=== PATIENT | male | born 1945 | race Caucasian/White ===

== ENCOUNTER 2017-10-13 17:23 | Emergency (ER) ==
[2017-10-13 17:49] VITALS: BP 169/80; TEMP 96.6; BMI 27.9
--- NOTE | 2017-10-13 18:31 | ED.PDOC ---
General <CHELY SIERRA - Last Filed: 10/13/17 19:50> Stated Complaint: Burning with urination; frequency - groin pain; also weeping swollen bilateral lower extremities. Time Seen by Physician: 18:05 Mode of Arrival: Ambulance Information Source: Patient, Family, EMT Exam Limitations: No limitations Nursing and Triage Documentation Reviewed and Agree: Yes Reviewed sepsis parameters & appropriate labs ordered?: Yes System Inflammatory Response Syndrome: Not Applicable System Inflammatory Response Syndrome: Not Applicable <MARY ENNIS - Last Filed: 10/14/17 07:45> ED Provider: Dr. MARY ENNIS Chief Complaint: Non-specific Complaint Primary Care Provider: ALTA SLOAN Sepsis Protocol: For patient's 13 years and over: Temp is 96.8 and below OR 101 and greater Pulse >90 BPM Resp >20/minute Acutely Altered Mental Status Are patient's symptoms suggestive of a new infection, such as: -Pneumonia -Skin, Soft Tissue -Endocarditis -UTI -Bone, Joint Infection -Implantable Device -Acute Abdominal Infection -Wound Infection -Meningitis -Blood Stream Catheter Infection -Unknown Review of Systems - Review Of Systems Constitutional: Reports: Weakness Cardiac: Reports: Edema (massive bilateral LE) : Reports: Burning, Dysuria, Discharge, Pain (Groin area) Skin: Reports: No symptoms Neurological: Reports: No symptoms All Other Systems: Reviewed and Negative <IVÁN ENNISORY - Last Filed: 10/14/17 07:45> Past Medical History - Past Medical History Previously Healthy: No (Multiple system problems) Endocrine: Reports: None Cardiovascular: Reports: CHF Respiratory: Reports: COPD Hematological: Reports: None Gastrointestinal: Reports: None Genitourinary: Reports: UTI Neuro/Psych: Reports: Seizure Musculoskeletal: Reports: None Cancer: Reports: None - Surgical History General Surgical History: Reports: None - Family History Family History: Reports: Unknown - Social History Smoking Status: Current every day smoker, Heavy tobacco smoker Hx Substance Use: No Alcohol Screening: None <MARY ENNIS - Last Filed: 10/14/17 07:45> Physical Exam - Physical Exam Appearance: Ill-appearing Ill-appearing: Moderate Pain Distress: None Eyes: MARY, EOMI ENT: Oropharynx normal Neck: Supple Respiratory: Airway patent, Breath sounds clear, Breath sounds equal Cardiovascular: RRR, Pulses normal GI/: Soft, Nontender Musculoskeletal: Normal strength, ROM intact, Edema ( bilateral LE edema with weeping) Skin: Normal color Neurological: Sensation intact, Motor intact, Alert, Oriented Psychiatric: Affect appropriate, Mood appropriate <MARY ENNIS - Last Filed: 10/14/17 07:45> Critical Care Note - Critical Care Note Total Time (mins): 0 <CHELY SIERRA - Last Filed: 10/13/17 19:50> <MARY ENNIS - Last Filed: 10/14/17 07:45> - Critical Care Note Comments: Refuses to be admitted for lower ext Edema and UTI (CHELY SIERRA) Course - Course Hematology/Chemistry: 10/13/17 18:36 10/13/17 18:36 <CHELY SIERRA - Last Filed: 10/13/17 19:50> - Course Hematology/Chemistry: 10/13/17 18:36 10/13/17 18:36 <MARY ENNIS - Last Filed: 10/14/17 07:45> - Course Orders, Labs, Meds: Lab Review 10/13/17 10/13/17 10/13/17 18:04 18:36 18:36 WBC 9.02 RBC 3.43 L Hgb 10.5 L Hct 31.0 L MCV 90.4 MCH 30.6 MCHC 33.9 RDW Coeff of Vilma 13.4 Plt Count 379 Immature Gran % (Auto) 0.4 Neut % (Auto) 71.2 Lymph % (Auto) 15.4 [place] % (Auto) 11.4 H Eos % (Auto) 1.2 Baso % (Auto) 0.4 Immature Gran # (Auto) 0.0 Neut # 6.4 Lymph # 1.4 [place] # 1.0 Eos # 0.1 Baso # 0.0 Sodium 134 L Potassium 4.9 Chloride 100 Carbon Dioxide 26 Anion Gap 12.9 BUN 19 H Creatinine 0.79 Estimated GFR (MDRD) 96.00 BUN/Creatinine Ratio 24.05 Glucose 121 H Calcium 9.4 Total Bilirubin < 0.3 AST 25 ALT 25 Alkaline Phosphatase 80 B-Natriuretic Peptide Total Protein 7.2 Albumin 3.0 L Globulin 4.2 Albumin/Globulin Ratio 0.71 Urine Color Brown Urine Clarity Turbid Urine pH TNP Ur Specific [place] TNP Urine Protein TNP Urine Glucose (UA) TNP Urine Ketones TNP Urine Blood TNP Urine Nitrite TNP Urine Bilirubin TNP Urine Urobilinogen TNP Ur Leukocyte Esterase TNP Urine Microscopic RBC 5-10 Ur Squamous Epith Cells Not present Amorphous Sediment 4+ Urine Bacteria 1+ Urine Mucus 4+ Urine Yeast 1+ 10/13/17 18:36 WBC RBC Hgb Hct MCV MCH MCHC RDW Coeff of Vilma Plt Count Immature Gran % (Auto) Neut % (Auto) Lymph % (Auto) [place] % (Auto) Eos % (Auto) Baso % (Auto) Immature Gran # (Auto) Neut # Lymph # [place] # Eos # Baso # Sodium Potassium Chloride Carbon Dioxide Anion Gap BUN Creatinine Estimated GFR (MDRD) BUN/Creatinine Ratio Glucose Calcium Total Bilirubin AST ALT Alkaline Phosphatase B-Natriuretic Peptide 309 H Total Protein Albumin Globulin Albumin/Globulin Ratio Urine Color Urine Clarity Urine pH Ur Specific [place] Urine Protein Urine Glucose (UA) Urine Ketones Urine Blood Urine Nitrite Urine Bilirubin Urine Urobilinogen Ur Leukocyte Esterase Urine Microscopic RBC Ur Squamous Epith Cells Amorphous Sediment Urine Bacteria Urine Mucus Urine Yeast Orders Category Date Time Status BNP [B-TYPE NATRIURETIC PEPTIDE] Stat LAB 10/13/17 18:36 Completed CBC W/ AUTO DIFF Stat LAB 10/13/17 18:36 Completed COMPREHENSIVE METABOLIC PANEL Stat LAB 10/13/17 18:36 Completed URINALYSIS C & S IF INDICATED Stat LAB 10/13/17 18:04 Completed URINE CULTURE Stat LAB 10/13/17 18:04 Results Vital Signs: Temp Pulse Resp BP Pulse Ox 10/13/17 17:26 96.6 F L 94 H 22 169/80 H 95 Departure - Departure Time of Disposition: 19:50 Pt referred to PMD for follow-up: Yes IPMP verified?: No Disposition Discussed With: Patient, Family <CHELY SIERRA - Last Filed: 10/13/17 19:50> <MARY ENNIS - Last Filed: 10/14/17 07:45> - Departure Disposition: AMA Discharge Problem: Urinary tract infection Qualifiers: Urinary tract infection type: acute cystitis Hematuria presence: without hematuria Qualified Code(s): N30.00 - Acute cystitis without hematuria Instructions: Urinary Tract Infection in Men (ED) Condition: Stable Additional Instructions: Take medications as prescribed Follow up with PCP Prescriptions: Ciprofloxacin HCl 500 mg PO BID #20 tablet Allergies/Adverse Reactions: Allergies No Known Allergies Allergy (Unverified 10/13/17 17:49) Home Medications: Ambulatory Orders Albuterol Sulfate [Proair Hfa] 2 puff IH Q4H PRN 10/13/17 Ciprofloxacin HCl 500 mg PO BID #20 tablet 10/13/17 Furosemide [Lasix Tab] 20 mg PO QDAC 10/13/17 Phenytoin Cap [Dilantin] 100 mg PO BID 10/13/17 Tiotropium [place] [Spiriva] 1 cap IH DAILY 10/13/17
== END 2017-10-13 20:07 | disposition left against medical advice (07) ==
LOC: ED 17:23
DX: N30.00 Acute cystitis without hematuria (principal); R60.0 Localized edema; I50.9 Heart failure, unspecified; F17.210 Nicotine dependence, cigarettes, uncomplicated
CPT/HCPCS: 36415; 80053; 81001; 83880; 85025; 87086; 87186; 99284

== ENCOUNTER 2017-11-11 09:18 | Emergency (ER) ==
[2017-11-11 09:35] VITALS: BP 178/77; TEMP 97.5
--- NOTE | 2017-11-11 10:54 | ED.PDOC ---
General ED Provider: Dr. JOSSY VELÁSQUEZ Chief Complaint: Extremity Swelling/Pain Stated Complaint: Pain and Swelling of bilat feet and legs. Severe excoraition and drainage from Rt leg down entire pre tibial surface. He states has been attempting to take care of his legs at home. Sees PA at [facility] in [place]. His states she did not know his legs and feet were in that condition. Has past History CHF. Denies previous cardiac work up. Was previous in ER in Sep 2017.Recom Time Seen by Physician: 10:50 Mode of Arrival: Wheelchair Information Source: Patient Exam Limitations: No limitations Primary Care Provider: ALTA SLOAN Referred to ED by: Other Nursing and Triage Documentation Reviewed and Agree: Yes Reviewed sepsis parameters & appropriate labs ordered?: Yes System Inflammatory Response Syndrome: Not Applicable Sepsis Protocol: For patient's 13 years and over: Temp is 96.8 and below OR 101 and greater Pulse >90 BPM Resp >20/minute Acutely Altered Mental Status Are patient's symptoms suggestive of a new infection, such as: -Pneumonia -Skin, Soft Tissue -Endocarditis -UTI -Bone, Joint Infection -Implantable Device -Acute Abdominal Infection -Wound Infection -Meningitis -Blood Stream Catheter Infection -Unknown System Inflammatory Response Syndrome: Not Applicable Cardiovascular Complaint Exam - Chest Pain Complaint/Exam Onset: Gradual Duration: 3 months Symptoms Are: Worse Length of Chest Pain Episodes: NO PAIN/SEVERE SWELLING BILATERAL LOWER EXTREMITIES. MILD DYSPNEA Initial Severity: Severe Current Severity: Moderate AMI/ACS Risk Factors: Reports: Obesity, Smoking TAD Risk Factors: Reports: Hypertension, Smoking, CHF Pulmonary Embolism Risk Factors: Reports: None Prior Care for this Complaint: Yes Recent Stress Test: No Recent Echo/LV Function: No JVD Present: No Subcutaneous Emphysema Present: No Diminshed Breath Sounds: No Reproducible Chest Wall Pain: No Bilateral Pulses Present: No (DIMINISHED) Differential Diagnoses: Other (PERIPHERAL VASCULAR INSUFFICIENCY WITH MARKED LYMPHEDEMA/CELLULITIS RT LEG/EXUDATIVE CHANGES) Quality Indicators For Pneumonia/CAP: Antibiotics in 6hr-admit, Empiric Antibiotic Rx, Vital signs, Mental status assessed Patient Advised to Stop Smoking: Yes Review of Systems - Review Of Systems Constitutional: Reports: No symptoms Eyes: Reports: No symptoms Ears, Nose, Mouth, Throat: Reports: No symptoms Respiratory: Reports: No symptoms, Short of air Cardiac: Reports: No symptoms, Other (peripheral vascular disease) GI: Reports: No symptoms : Reports: No symptoms Musculoskeletal: Reports: No symptoms Skin: Reports: No symptoms, Change in hair/nails, Other (EXCORAITIVE CELLULITIS ) Neurological: Reports: No symptoms Endocrine: Reports: No symptoms Hematologic/Lymphatic: Reports: No symptoms All Other Systems: Reviewed and Negative Past Medical History - Past Medical History Previously Healthy: No (Multiple system problems) Endocrine: Reports: None Cardiovascular: Reports: CHF Respiratory: Reports: COPD Hematological: Reports: None Gastrointestinal: Reports: None Genitourinary: Reports: UTI Neuro/Psych: Reports: Seizure Musculoskeletal: Reports: None Cancer: Reports: None - Surgical History General Surgical History: Reports: None - Family History Family History: Reports: Unknown - Social History Smoking Status: Current every day smoker, Heavy tobacco smoker Hx Substance Use: No Alcohol Screening: None Physical Exam - Physical Exam Appearance: Ill-appearing Ill-appearing: Moderate Pain Distress: Moderate Eyes: MARY, EOMI, Conjunctiva clear ENT: Ears normal, Nose normal, Oropharynx normal Respiratory: Airway patent, Breath sounds clear, Breath sounds equal, Respirations nonlabored Cardiovascular: RRR, Pulses normal, No rub, No murmur GI/: Soft, Nontender, No masses, Bowel sounds normal, No Organomegaly Musculoskeletal: Normal strength, ROM intact, No edema, No calf tenderness, Limited ROM Skin: Warm (excoriation of skin of the lower extremities) Neurological: Sensation intact, Motor intact, Reflexes intact, Cranial nerves intact, Alert, Oriented Psychiatric: Affect appropriate, Mood appropriate Critical Care Note - Critical Care Note Total Time (mins): 30 Course - Course Hematology/Chemistry: 11/11/17 11:10 11/11/17 11:10 Orders, Labs, Meds: Lab Review 11/11/17 11/11/17 11/11/17 11:10 11:10 11:10 WBC 9.20 RBC 3.60 L Hgb 10.7 L Hct 32.9 L MCV 91.4 MCH 29.7 MCHC 32.5 RDW Coeff of Vilma 14.1 Plt Count 323 Immature Gran % (Auto) 0.4 Neut % (Auto) 65.8 Lymph % (Auto) 20.9 [place] % (Auto) 9.9 Eos % (Auto) 2.2 Baso % (Auto) 0.8 Immature Gran # (Auto) 0.0 Neut # (Auto) 6.1 Lymph # (Auto) 1.9 [place] # (Auto) 0.9 Eos # (Auto) 0.2 Baso # (Auto) 0.1 Sodium 138 Potassium 5.0 Chloride 100 Carbon Dioxide 27 Anion Gap 16.0 BUN 14 Creatinine 0.72 Estimated GFR (MDRD) 107.00 BUN/Creatinine Ratio 19.44 Glucose 96 Lactic Acid Calcium 9.7 Total Bilirubin 0.3 AST 13 L ALT 12 Alkaline Phosphatase 103 Troponin I 0.0300 B-Natriuretic Peptide 192 H Total Protein 7.0 Albumin 3.2 L Globulin 3.8 Albumin/Globulin Ratio 0.84 TSH Free T4 Urine Color Urine Clarity Urine pH Ur Specific [place] Urine Protein Urine Glucose (UA) Urine Ketones Urine Blood Urine Nitrite Urine Bilirubin Urine Urobilinogen Ur Leukocyte Esterase Urine Microscopic WBC Ur Squamous Epith Cells Urine Bacteria Influ A Molecular Assay Influ B Molecular Assay 11/11/17 11/11/17 11/11/17 11:28 13:30 13:30 WBC RBC Hgb Hct MCV MCH MCHC RDW Coeff of Vilma Plt Count Immature Gran % (Auto) Neut % (Auto) Lymph % (Auto) [place] % (Auto) Eos % (Auto) Baso % (Auto) Immature Gran # (Auto) Neut # (Auto) Lymph # (Auto) [place] # (Auto) Eos # (Auto) Baso # (Auto) Sodium Potassium Chloride Carbon Dioxide Anion Gap BUN Creatinine Estimated GFR (MDRD) BUN/Creatinine Ratio Glucose Lactic Acid 7.4 Calcium Total Bilirubin AST ALT Alkaline Phosphatase Troponin I B-Natriuretic Peptide Total Protein Albumin Globulin Albumin/Globulin Ratio TSH Free T4 Urine Color Yellow Urine Clarity Turbid Urine pH 7.5 Ur Specific [place] 1.005 Urine Protein 2+ Urine Glucose (UA) Negative Urine Ketones Negative Urine Blood 3+ Urine Nitrite Negative Urine Bilirubin 1+ Urine Urobilinogen 0.2 Ur Leukocyte Esterase 3+ Urine Microscopic WBC Tntc Ur Squamous Epith Cells Not present Urine Bacteria 3+ Influ A Molecular Assay Negative by naat Influ B Molecular Assay Negative by naat 11/11/17 13:30 WBC RBC Hgb Hct MCV MCH MCHC RDW Coeff of Vilma Plt Count Immature Gran % (Auto) Neut % (Auto) Lymph % (Auto) [place] % (Auto) Eos % (Auto) Baso % (Auto) Immature Gran # (Auto) Neut # (Auto) Lymph # (Auto) [place] # (Auto) Eos # (Auto) Baso # (Auto) Sodium Potassium Chloride Carbon Dioxide Anion Gap BUN Creatinine Estimated GFR (MDRD) BUN/Creatinine Ratio Glucose Lactic Acid Calcium Total Bilirubin AST ALT Alkaline Phosphatase Troponin I B-Natriuretic Peptide Total Protein Albumin Globulin Albumin/Globulin Ratio TSH 3.053 Free T4 0.77 Urine Color Urine Clarity Urine pH Ur Specific [place] Urine Protein Urine Glucose (UA) Urine Ketones Urine Blood Urine Nitrite Urine Bilirubin Urine Urobilinogen Ur Leukocyte Esterase Urine Microscopic WBC Ur Squamous Epith Cells Urine Bacteria Influ A Molecular Assay Influ B Molecular Assay Orders Category Date Time Status EKG-(ED ONLY) Stat CARDIO 11/11/17 10:52 Completed IV [ED IV/MEDIPORT/POWERPORT] .ONCE EMERGENCY 11/11/17 10:52 Active BLOOD CULTURE (ED ONLY) Stat LAB 11/11/17 13:30 Completed BNP [B-TYPE NATRIURETIC PEPTIDE] Stat LAB 11/11/17 11:10 Completed CBC W/ AUTO DIFF Stat LAB 11/11/17 11:10 Completed CMP [COMPREHENSIVE METABOLIC PANEL] Stat LAB 11/11/17 11:10 Completed FLU A & B MOLECULAR [FLU A/B MOLECULAR] Stat LAB 11/11/17 13:30 Completed FREE T4 (FREE THYROXINE) Stat LAB 11/11/17 13:30 Completed LACTIC ACID Stat LAB 11/11/17 13:30 Completed TROPONIN I Stat LAB 11/11/17 11:10 Completed TSH [THYROID STIMULATING HORMONE] Stat LAB 11/11/17 13:30 Completed UA [URINALYSIS C & S IF INDICATED] Stat LAB 11/11/17 11:28 Completed URINE CULTURE Stat LAB 11/11/17 11:28 Completed 0.9 % Sodium Chloride [Saline Flush] MEDS 11/11/17 10:52 Discontinued 1 syr IVF PRN PRN Ceftriaxone Sodium [Rocephin] MEDS 11/11/17 13:31 Discontinued 1 gm .ROUTE .STK-MED ONE Ceftriaxone Sodium [Rocephin] 1 gm MEDS 11/11/17 13:07 Discontinued 0.9 % Sodium Chloride [Sodium Chloride] 50 ml IV ONCE CHEST, 1V AP ONLY Stat RADS 11/11/17 11:34 Completed Medications Discontinued Medications Generic Name Dose Route Start Last Admin Trade Name Freq PRN Reason Stop Dose Admin Ceftriaxone Sodium 1 gm/ 50 mls @ 75 mls/hr 11/11/17 13:07 11/11/17 13:40 Sodium Chloride IV 11/11/17 13:46 75 mls/hr ONCE STA Administration Sodium Chloride 1 syr 11/11/17 10:52 11/11/17 13:40 Saline Flush IVF 1 syr PRN PRN Administration To flush IV Vital Signs: Temp Pulse Resp BP Pulse Ox 11/11/17 09:19 97.5 F L 84 16 178/77 H 96 MITCHELL Risk Score MITCHELL Risk Score: Risk Score Odds of by 30D 0 0.1 (0.1-0.2) 1 0.3 (0.2-0.3) 2 0.4 (0.3-0.5) 3 0.7 (0.6-0.9) 4 1.2 (1.0-1.5) 5 2.2 (1.9-2.6) 6 3.0 (2.5-3.6) 7 4.8 (3.8-6.1) Departure - Departure Time of Disposition: 13:55 Disposition: TSF SHORT-TRM HOSP Discharge Problem: Cellulitis of left anterior lower leg, Venous insufficiency (chronic) ( peripheral), UTI (urinary tract infection), CHF (congestive heart failure), Urinary hesitancy Condition: Fair Pt referred to PMD for follow-up: Yes IPMP verified?: No Additional Instructions: DISCUSSED CASE WITH PATIENT AND HIS /STEP DAUGHTER RECOMMEND TRANSFER TO [facility] DISCUSSED WITH DR WILLIAM WHO ACCEPTS PATIENT IN TRANSFER Allergies/Adverse Reactions: Allergies No Known Allergies Allergy (Verified 11/11/17 09:46) Home Medications: Ambulatory Orders Albuterol Sulfate [Proair Hfa] 2 puff IH Q4H PRN 10/13/17 Furosemide [Lasix Tab] 20 mg PO QDAC 10/13/17 Phenytoin Cap [Dilantin] 300 mg PO BID 10/13/17 Tiotropium [place] [Spiriva] 1 cap IH DAILY 10/13/17 Potassium 99 mg PO DAILY 11/11/17 Transfer Form Completed: Yes Disposition Discussed With: Patient, Family (Transferred to [facility] -Dr William Hospitalist)
--- NOTE | 2017-11-11 11:59 | DI ---
Exam: Single x-ray of the chest. Comparison: None available. Reason for exam: Leg edema. FINDINGS: No pneumothorax. There are patchy airspace opacities in the right middle lobe. No obviou s pneumothorax. The cardiac silhouette appears mildly prominent size. Impression: Patchy airspace opacities in the right middle lobe likely representing pneumonia or atelectasis. Two -view chest x-ray may be performed for further characterization.
[2017-11-11] MEDS ORDERED: ROCEPHIN 1 GM in SODIUM CHLORIDE 50 ML IV STA (13:07)
[2017-11-11] MEDS ORDERED: ROCEPHIN ONE (13:31)
[2017-11-11 14:28] VITALS: BMI 28.6
== END 2017-11-11 14:30 | disposition short-term general hospital (02) ==
LOC: ED 09:18
DX: L03.116 Cellulitis of left lower limb (principal); I87.2 Venous insufficiency (chronic) (peripheral); N39.0 Urinary tract infection, site not specified; I50.9 Heart failure, unspecified; R33.9 Retention of urine, unspecified; I10 Essential (primary) hypertension; F17.210 Nicotine dependence, cigarettes, uncomplicated; E66.9 Obesity, unspecified; Z79.899 Other long term (current) drug therapy
CPT/HCPCS: 36415; 80053; 81001; 83605; 83880; 84439; 84443; 84484; 85025; 87040; 87086; 87186; 87502; 93005; 93010; 96365; 99285